=== PATIENT | male | born 2000 | race Caucasian/White ===

== ENCOUNTER 2022-04-01 20:42 | Emergency (ER) | payer OTHER ==
[~2022-04-01] VITALS: Ht 175.3 cm; Wt 70.5 kg
[2022-04-01 20:43] VITALS: BP 126/71
[2022-04-01] MEDS ORDERED: LIDOCAINE VISCOUS 2% SOLN 15ML UDC SS ONE (22:35)
[2022-04-01] MEDS ORDERED: ALBUTEROL 90 MCG/ACT 8GM HFA INHALER INH ONE (22:35)
[2022-04-01] MEDS ORDERED: NAPROXEN 250 MG TAB PO ONE (22:35)
[2022-04-01] MEDS ORDERED: BENZONATATE 100MG CAPSULE PO ONE (22:35)
[2022-04-01] MEDS ORDERED: PSEUDOEPHEDRINE 30 MG TAB PO STA (22:38)
[2022-04-01] MEDS ORDERED: PSEU120T19 PO (23:45)
[2022-04-01] MEDS ORDERED: LIDO2SOL17 PO (23:45)
[2022-04-01] MEDS ORDERED: BENZ200C70 PO (23:45)
[2022-04-01] MEDS ORDERED: PROAAER10 INH (23:45)
== END 2022-04-01 23:54 | disposition home or self-care (01) ==
LOC: M ED 20:42
DX: J06.9 Acute upper respiratory infection, unspecified (principal)